=== PATIENT | female | born 1960 | race Caucasian/White ===

== ENCOUNTER 2023-12-18 09:21 | Day surgery (SDC) | payer OTHER ==
[2023-12-18] MEDS ORDERED: Glycopyrrolate 0.2 MG/ML 5 ML MDV IV ONE (09:22)
[2023-12-18] MEDS ORDERED: Rocuronium 100 MG/10 ML MDV IV ONE (09:22)
[2023-12-18] MEDS ORDERED: Dexamethasone 4 MG/ML SDV IV ONE (09:22)
[2023-12-18] MEDS ORDERED: Midazolam 1 MG/ML 2 ML SDV IV ONE (09:22)
[2023-12-18] MEDS ORDERED: diphenhydrAMINE 50 MG/ML SDV IVPUSH ONE (09:22)
[2023-12-18] MEDS ORDERED: Neostigmine Methylsulfate 10 MG/10 ML MDV IVPUSH ONE (09:22)
[2023-12-18] MEDS ORDERED: Ondansetron 4 MG/2 ML SDV IVPUSH ONE (09:22)
[2023-12-18] MEDS ORDERED: Ketorolac 30 MG/ML SDV IVPUSH ONE (09:22)
[2023-12-18] MEDS ORDERED: Succinylcholine 200 MG/10 ML MDV IV ONE (09:22)
[2023-12-18] MEDS ORDERED: Lidocaine 2% 100 MG/5 ML Syringe IVPUSH ONE (09:22)
[2023-12-18] MEDS ORDERED: Lactated Ringers 1,000 ML IV ONE (09:22)
[2023-12-18] MEDS ORDERED: fentaNYL 100 MCG/2 ML SDV IV ONE (09:22)
[2023-12-18] MEDS ORDERED: Labetalol 100 MG/20 ML MDV IV ONE (09:22)
[2023-12-18] MEDS ORDERED: Propofol 200 MG/20 ML SDV IV ONE (09:22)
[2023-12-18] MEDS ORDERED: Sodium Chloride 0.9% 10 ML Syringe FLUSH PRN (09:30)
[2023-12-18] MEDS: Lactated Ringers 1,000 ML IV SCH (11:05)
[2023-12-18] MEDS: ceFAZolin 1 GM Vial IVPUSH ONE (11:25)
[2023-12-18] MEDS: Bupivacaine 0.5%/EPINEPHrine 1:200,000 30 ML SDV INJECT ONE (11:54)
== END 2023-12-18 14:49 | disposition home or self-care (01) ==
LOC: FB.SDS 09:21
PROVIDERS: ATTEND Surgery
DX: K80.10 Calculus of gallbladder with chronic cholecystitis without obstruction (principal); K82.8 Other specified diseases of gallbladder; F32.A Depression, unspecified; F17.210 Nicotine dependence, cigarettes, uncomplicated; Z79.899 Other long term (current) drug therapy
CPT/HCPCS: 00790; 88304; J0330; J0690; J1100; J1200; J1885; J1921; J2250; J2405; J2704; J2710; J3010; J3490; J7120